=== PATIENT | male | born 1980 | race African-American/Black ===

== ENCOUNTER 2025-07-21 09:54 | Outpatient (AMB) | payer OTHER, SELFPAY ==
--- NOTE | 2025-07-21 09:53 | AM.OFFWIN_ITS ---
Intake Vital Signs 07/21/25 09:57 Height 5 ft 11 in Weight 155 lb BMI 21.6 BP 114/79 Blood Pressure Location Lt brachial Position Sitting Pulse 66 Pulse Source Pulse Oximeter Temp 97.9 F Temp Source Oral Pulse Oximetry (%) 98 Oxygen Delivery Method Room Air Intake Visit Reasons: [employer] - Ingrown Toenail Intake Note: [employer] complains of ingrown toenail in his right big toe for months but become painful recently. He also complain of having bilateral bump in his armpits which grown up an become visible recently. Allergies No Known Allergies Allergy (Verified 07/21/25 10:05) Do you need a note to return to daycare/school/sports/work: No HPI HPI Comments History of Present Illness Details History of Present Illness The patient is a 45 year old male presenting with an ingrown toenail and bumps under his arms. Ingrown toenail: - The patient reports having an ingrown toenail on his right great toe for a few months - He reports the pain has been intermitt ent and described it as a throbbing quality. - He currently denies any pain - He has tried to cut the nail himself w ithout success. - The patient denies any associated feve rs, redness, or purulent drainage from the nail. Underarm bumps - The patient noticed bumps under his ar ms approximately. - He initially had multiple bumps on the left side that have since resolved, and then developed new bumps on the right side about one week ago. - He reports they are tender when palpat ed but otherwise do not bother him. - He denies recent illness, congestion, fatigue, or unintentional weight loss. - He reports occasional sweating at nigh t if it gets too hot but denies having regular night sweats. - He denies noticing any lumps in his ne ck or groin. Review of Systems - Constitutional: Denies fevers, uninten tional weight loss, or fatigue. Reports night sweats only when feeling hot. - Skin: Reports a painful ingrown toenai l on the right great toe for one month. Reports tender bumps in both axillae - HEENT: Denies congestion, rhinorrhea, sore throat, or cough. Physical Exam General Appearance: Normal appearance, well developed. No acute distress Head: Normocephalic, atraumatic Pulmonary: No respiratory distress. Speaking in full sentences Musculoskeletal: Moving all extremities spontaneously and against gravity Mental Status: Alert and Oriented x 3 Integumentary: Patient noted to have an ingrown toenail of the right 1st toe growing into the medial nailbed. No surrounding erythema or swelling present. No purulent drainage noted. Two 1 cm palpable tender masses noted along the right axilla and one similar mass along the left axilla that are mobile and well circumscribed. No associated erythema, fluctuance, or purulence. Psychiatric: Normal mood. Normal affect. Physical Exam Vital Signs: Last Vital Signs Temp 97.9 F 07/21/25 09:57 Pulse 66 07/21/25 09:57 BP 114/79 07/21/25 09:57 Pulse Ox 98 07/21/25 09:57 Oxygen Delivery Method Room Air 07/21/25 09:57 BMI result Body Mass Index 21.6 Assessment & Plan Assessment & Plan (1) Ingrown right big toenail: Code(s): L60.0 - Ingrowing nail (2) Axillary adenopathy: Code(s): R59.0 - Localized enlarged lymph nodes Plan 1. Ingrown toenail, right great toe - The patient has a right ingrown toenail of the great toe for a few months with intermittent discomfort - Examination does not reveal any signs of associated paronychia - He will be referred to podiatry for further evaluation and treatment - An appointment has been scheduled for him with podiatry for tomorrow at 11:00 AM. 2. Bilateral axillary lymphadenopathy - The patient presents with a week long history of tender, waxing and waning axillary bumps. - Examination reveals mobile, well-circumscribed masses of approximately 1 cm in both axillae - As the bumps along the right axilla have been improving, discussed concern for reactive lymphadenopathy - Abscesses less likely as there is no erythema, warmth, or fluctuance. He denies any recent unintentional weight loss, significant night sweats, or lymphadenopathy elsewhere. - He should follow up if they persist for more than 1-2 weeks, enlarge, or become fixed, at which point imaging would be considered. - Patient reports he is in the process of establishing with a PCP. [facility] [place]. Patient was informed and verbally consented to the use of an ambient scribe for clinic note documentation during the visit. Coding Level of Care Code New Pt Level 3 (64358) Diagnoses Ingrown right big toenail L60.0 Axillary adenopathy R59.0
[2025-07-21 09:57] VITALS: BP 114/79; PULSE 66; TEMP 36.6; O2SAT 98; BMI 21.6
--- OUTSIDE RECORDS SUMMARY | 2025-07-21 10:43 | XMS_ITS | Clinical Summary ---
Author Organization [facility] Address [address] [place] [address] Care Team Providers Care Lofter Name Role Phone Unavailable Primary Care Provider Unavailabl e Social History Tobacco Use Types Packs/Day Years Used Date Smoking Tobacco: Never Assessed Sex and Gender Information Value Date Recorded Sex Assigned at Not on file Legal Sex Male 1:45 PM EST Gender Identity Not on file Sexual Orientation Not on file Plan of Treatment Health Maintenance Due Date Last Done Comments DTaP,Tdap,and Td Vaccines (1 - Tdap) 2001 Hepatitis B Vaccines (1 of 3 - 19+ 3-dose series) 2001 HPV Vaccines (1 - 3-dose SCD M series) 2009 Depression Screening 07/30/2024 COVID-19 Vaccine (1 - 2024-2 6 season) 2025 Influenza Vaccine (#1) 2025 RSV Immunization Adult Patie nts (1 - 1-dose 75+ series) 2057 HIB Vaccines Aged Out No longer eligi ble based on patient's age to complete this topic Hepatitis A Vaccines Aged Out No long er eligible based on patient's age to complete this topic IPV Vaccines Aged Out No longer eligi ble based on patient's age to complete this topic MMR Vaccines Aged Out No longer eligi ble based on patient's age to complete this topic Meningococcal ACWY Vaccine Aged Out N o longer eligible based on patient's age to complete this topic Meningococcal B Vaccine Aged Out No l onger eligible based on patient's age to complete this topic Pneumococcal Vaccine: Pediat rics (0 to 5 Years) and At-Risk Patients (6 to 49 Years) Aged Out No longer eligible b ased on patient's age to complete this topic RSV Immunization Patients Un lesly 20 months Aged Out No longer eligible b ased on patient's age to complete this topic Varicella Vaccines Aged Out No longer eligible based on patient's age to complete this topic
== END 2025-07-21 11:09 | disposition home or self-care (01) ==
LOC: HO.HMCWIS 09:54
PROVIDERS: PCP Hospitalist; Visit Provider Family Medicine
DX: L60.0 Ingrowing nail (principal); R59.0 Localized enlarged lymph nodes

== ENCOUNTER → 2025-07-21 09:54 | Outpatient (BNVA) | payer OTHER, SELFPAY | PROVIDERS: PCP Hospitalist; Visit Provider Family Medicine | DX: L60.0 Ingrowing nail (principal); R59.0 Localized enlarged lymph nodes | CPT/HCPCS: 99202 ==

== ENCOUNTER 2025-07-22 11:15 | Outpatient (AMB) | payer OTHER, SELFPAY ==
--- NOTE | 2025-07-22 11:16 | MHC.OFFVIS ---
Intake Visit Reasons: Ingrown toenail Intake Note: Milton is a 45 year old male who presents today as a new patient for an evaluation of his ingrown nail of the right hallux. Patient reports this has been an on going issue for months. He has not tried any treatment but home care Allergies No Known Allergies Allergy (Verified 07/22/25 11:18) HPI HPI Ingrown toenail: Details: The patient is a 45 year old male presenting with right big toe pain. The patient reports having an issue with his right foot nail for some time but notes the pain has recently worsened significantly. He has experienced some bleeding from the area in the past but denies any redness or drainage this week. He admits to trying to trim the nail himself but cannot get deep enough to relieve the issue. Social History: - Employment: The patient is currently not working. - He is considering returning to school, obtaining a CD[employer] license, or finding another job. Review of Systems Const All systems reviewed & are unremarkable except as noted in HPI and below Physical Exam Extrem Other: *Bilateral Lower Extremity Focused Exam Vascular: DP/PT 2/4, CFT<3s to digits, TG warm to cool, mild edema to the right hallux medial nail border Derm: No erythema or drainage to the right hallux. The right hallux medial nail border significantly ingrown and dystrophic. Neuro: Protective sensation grossly intact to bilateral lower extremities. MSK: Mild tenderness on palpation of the medial border right hallux Office Procedures AMB Debridement/Avulsion Podia Details: Procedure: Partial Nail Avulsion medial border with chemical matricectomy Indication: Right Hallux Ingrown toenail, medial border Anesthesia: Digital block with 14 cc of a 1-1 mixture of 1 % lidocaine (without epinephrine) and 0.5% Marcaine plain Description: The digit was prepped using betadine. A freer elevator was used to free the medial border of the nail plate. A nail splitter was used to cut approximately 10-15% of the nail. The offending nail was removed, and a curette was used to inspect for any loose spicules. Phenol was applied to the nail matrix to perform a chemical matrixectomy. The wound was irrigated with isopropyl alcohol. The wound was packed with silvadene-gauze strip, 4x4 gauze, and coban. Tolerance: Patient tolerated procedure well, no immediate complications. 32809 Nail matrixectomy Procedure code (CPT) selection complete Office Meds lidocaine HCl 10 mg/mL (1 %) injection solution Performing Provider: Johan Montenegro DPM Performing Location: [facility] Administered by: Johan Montenegro DPM on 07/22/25 19:51 Dose Route Admin Location Dispensed Lot Number Expiration Date [facility] Compensation Advisor 10 mL subcut 10 mL [id number] Total Dispensed Waste 10 mL 0 % bupivacaine (PF) 0.5 % (5 mg/mL) injection solution Performing Provider: Johan Montenegro DPM Performing Location: [facility] Administered by: Johan Montenegro DPM on 07/22/25 19:51 Dose Route Admin Location Dispensed Lot Number Expiration Date [facility] Compensation Advisor 5 mL subcut 10 mL [id number] [employer] Total Dispensed Waste 10 mL 50 % Triple Antibiotic 3.5 mg-400 unit-5,000 unit topical ointment packet Performing Provider: Johan Montenegro DPM Performing Location: [facility] Administered by: Johan Montenegro DPM on 07/22/25 19:51 Dose Route Admin Location Dispensed Lot Number Expiration Date [facility] Compensation Advisor 1 appl topical 1 appl [id number] [employer] povidone-iodine 10 % topical swab Performing Provider: Johan Montenegro DPM Performing Location: [facility] Administered by: Johan Montenegro DPM on 07/22/25 19:51 Dose Route Admin Location Dispensed Lot Number Expiration Date [facility] Compensation Advisor 1 appl topical 1 appl [id number] [employer]. ethyl chloride 100 % topical spray Performing Provider: Johan Montenegro DPM Performing Location: [facility] Administered by: Johan Montenegro DPM on 07/22/25 19:51 Dose Route Admin Location Dispensed Lot Number Expiration Date [facility] Compensation Advisor 1 appl topical 20 mL [id number] [employer] phenol 89 % topical swab Performing Provider: Johan Montenegro DPM Performing Location: [facility] Administered by: Johan Montenegro DPM on 07/22/25 19:51 Dose Route Admin Location Dispensed Lot Number Expiration Date [facility] Compensation Advisor 1 appl topical 1 appl [id number] [facility] Assessment & Plan Assessment & Plan (1) Paronychia of great toe of right foot: Code(s): L03.031 - Cellulitis of right toe Category: Medical Plan: Discussed the etiology of his ingrown nail infection. Recommended partial nail avulsion which the patient agreed to. Informed consent was obtained signed. The partial nail avulsion was performed with chemical matrixectomy. The patient was dispensed a surgical shoe and given at-home wound care instructions. Rx Augmentin b.i.d. x5 days F/u in 2 weeks (2) Intertrigo of web of toe: Code(s): L30.4 - Erythema intertrigo Category: Medical Plan: Recommended use of Betadine between his toes especially when he is playing sports Orders: Orders AMB Debridement/Avulsion Podiatry Today L03.031 - Cellulitis of right toe Medications: New amoxicillin-pot clavulanate 875-125 mg Take 1 tablet twice a day 1 tab PO BID 10 tabs 1RF cellulitis L60.0 - Ingrowing nail Coding Level of Care Code New Pt Level 4 (13069) Diagnoses Paronychia of great toe of right foot L03.031 Intertrigo of web of toe L30.4 CPT Codes Skin Debridement - CPT: 77881 Nail matrixectomy ([id number])
--- OUTSIDE RECORDS SUMMARY | 2025-07-22 11:18 | XMS_ITS | Clinical Summary ---
Author Organization [facility] Address [address] [place] [address] Care Team Providers Care Cosmetic Sales Assistant Name Role Phone Unavailable Primary Care Provider [...]
== END 2025-07-22 12:26 | disposition home or self-care (01) ==
LOC: HO.HPODS 11:15
PROVIDERS: PCP Hospitalist; Visit Provider Student in an Organized Health Care Education/Training Program
DX: L03.031 Cellulitis of right toe (principal); L30.4 Erythema intertrigo
CPT/HCPCS: 11750; 99204